=== PATIENT | male | born 1960 | race Asian ===

== ENCOUNTER 2021-06-18 07:00 | Day surgery (SDC) | payer OTHER ==
[2021-06-16 10:41] LABS: COVID AG,FIA SOURCE NASOPHARYNGEAL
[~2021-06-18] VITALS: Ht 165.1 cm; Wt 50.0 kg
[~2021-06-18 07:00] MED LIST: ALBU8.5H8 IH; MOME13HF IH; SODIUM CHLORIDE 0.9% 1,000 ML IV ONE; TIOT185 IH
[2021-06-18] MEDS ORDERED: ALBUTEROL SULFATE 2.5 MG/0.5 ML NEB SOLUTION NEB ONE (07:01)
[2021-06-18] MEDS ORDERED: LIDOCAINE 2% 30 ML JELLY TP ONE (07:01)
[2021-06-18] MEDS ORDERED: BENZOCAINE 20% 50 MCG/SPRAY 57 GM TP ONE (07:01)
[2021-06-18] MEDS ORDERED: SODIUM CHLORIDE 0.9% 1,000 ML ONE (07:11)
[2021-06-18] MEDS ORDERED: MIDAZOLAM HCL 5 MG/ML VIAL ONE (08:15)
[2021-06-18] MEDS ORDERED: FentaNYL CITRATE PF 100 MCG/2 ML VIAL ONE (08:15)
[2021-06-18] MEDS ORDERED: FAMO20 PO (09:04)
[2021-06-18] MEDS ORDERED: TERA2CAP10 PO (09:04)
[2021-06-18] MEDS ORDERED: MONT-35 PO (09:04)
[2021-06-18] MEDS ORDERED: FLUT44HFA IH (09:04)
[2021-06-18] MEDS ORDERED: FLUT16H NASAL (09:04)
[2021-06-18] MEDS ORDERED: MethylPREDNISolone SOD SUCC 125 MG/2 ML VIAL IVP ONE (09:30)
[2021-06-18] MEDS ORDERED: MethylPREDNISolone SOD SUCC 125 MG/2 ML VIAL ONE (10:26)
[2021-06-18] MEDS ORDERED: OXYGEN THERAPY IH SCH (20:00)
== END 2021-06-18 14:40 | disposition home or self-care (01) ==
LOC: SURGERY 07:00
PROVIDERS: ATTEND Internal Medicine Critical Care Medicine
DX: J38.4 Edema of larynx (principal); B37.0 Candidal stomatitis; J45.909 Unspecified asthma, uncomplicated; Z72.89 Other problems related to lifestyle; Z98.890 Other specified postprocedural states; Z86.11 Personal history of tuberculosis; Z79.899 Other long term (current) drug therapy
CPT/HCPCS: 31623; 31624; 71045; 87015; 87070; 87101; 87205; 87206; 87220; 87426; 88108; 88184; 88185; 88312; C9803; J2250; J2930; J3010; J7030; J7613

== ENCOUNTER 2024-01-10 06:45 | Day surgery (SDC) | payer OTHER ==
[~2024-01-10] VITALS: Ht 165.1 cm; Wt 55.4 kg
[~2024-01-10 06:45] MED LIST changes: +FAMO20 PO; +FLUT16SP NASAL; +FLUT44H IH; -MOME13HF IH; +MOME13HF11 IH; +MONT-35 PO; -SODIUM CHLORIDE 0.9% 1,000 ML IV ONE; +SODIUM CHLORIDE 0.9% 1,000 ML ONE; +TERA2CAP10 PO
[2024-01-10] MEDS ORDERED: LIDOCAINE 4% 50 ML SOLUTION TP ONE (06:46)
[2024-01-10] MEDS ORDERED: ALBUTEROL SULFATE 2.5 MG/0.5 ML NEB SOLUTION NEB ONE (06:46)
[2024-01-10] MEDS ORDERED: BENZOCAINE 20% 50 MCG/SPRAY 57 GM TP ONE (06:46)
[2024-01-10] MEDS ORDERED: LIDOCAINE 2% 11 ML JELLY TP ONE (06:46)
[2024-01-10] MEDS ORDERED: NALOXONE HCL 0.4 MG/ML VIAL ONE (07:24)
[2024-01-10] MEDS ORDERED: FLUMAZENIL 0.1 MG/ML 5 ML VIAL IVP ONE (07:24)
[2024-01-10] MEDS ORDERED: EPINEPHrine 1:10,000 [1 MG/10 ML] SYRINGE ONE (07:24)
[2024-01-10] MEDS ORDERED: DiphenhydrAMINE HCL 50 MG/ML VIAL ONE (07:24)
[2024-01-10] MEDS ORDERED: SODIUM TETRADECYL SULFATE 3% 60 MG/2 ML VIAL IVP ONE (07:25)
[2024-01-10] MEDS ORDERED: ATROPINE SULFATE 0.1 MG/ML 10 ML SYRINGE IVP ONE (07:25)
[2024-01-10] MEDS ORDERED: TAMS0.4C94 PO (07:33)
[2024-01-10] MEDS ORDERED: METO-325 PO (07:33)
[2024-01-10] MEDS ORDERED: ATOR10TA PO (07:33)
[2024-01-10] MEDS ORDERED: MIRA50TA PO (07:33)
[2024-01-10] MEDS ORDERED: MIDAZOLAM HCL 2 MG/2 ML VIAL ONE (08:05)
[2024-01-10] MEDS ORDERED: FentaNYL CITRATE PF 100 MCG/2 ML VIAL ONE (08:06)
[2024-01-10] MEDS: SODIUM CHLORIDE 0.9% 1,000 ML IV ONE (08:15)
[2024-01-10 09:51] VITALS: PULSE 95; RESP 22; O2SAT 97
[2024-01-10] MEDS ORDERED: MethylPREDNISolone SOD SUCC 125 MG/2 ML VIAL ONE (10:26)
[2024-01-10] MEDS: MethylPREDNISolone SOD SUCC 125 MG/2 ML VIAL IVP ONE (10:28)
== END 2024-01-10 11:25 | disposition home or self-care (01) ==
LOC: SURGERY 06:45
PROVIDERS: ATTEND Internal Medicine Critical Care Medicine
DX: J38.4 Edema of larynx (principal); B37.0 Candidal stomatitis; I10 Essential (primary) hypertension; Z72.89 Other problems related to lifestyle
CPT/HCPCS: 31623; 87206; 87101; 87220; 87070; 31624; 94640; 71045; 87015; J3010; J2250; J2919; Q9967; J7030; 88108; J0171; J0461; J1200; J2310; J3490; J7613; Z7610